=== PATIENT | female | born 1995 | race Caucasian/White ===

== ENCOUNTER 2021-02-01 06:20 | Inpatient (IN) | payer OTHER ==
[2021-02-01 08:53] LABS: BASO % 0.1 % (0-2.0); EOS % 0.1 % (0-4.5); HEMATOCRIT 40.7 % (32.4-45.2); HEMOGLOBIN 14.2 GM/dL (10.7-15.3); LYMPH % 8.6 % (8-40); MCH 30.6 pg (25.7-33.7); MCHC 34.8 g/dl (32.0-36.0); MEAN PLT VOLUME 8.9 fl (7.5-11.1); MONO % 3.8 % (3.8-10.2); NEUT % 87.4 % (42.8-82.8); PLATELET COUNT 217 10^3/uL (134-434); RBC 4.63 M/mm3 (3.60-5.2); RDW 14.1 % (11.6-15.6); WHITE BLOOD COUNT 18.2 K/mm3 (4.0-10.0)
[2021-02-01 09:00] LABS: INR 0.87 (0.83-1.09); PROTHROMBIN TIME (PATIENT) 10.6 SEC (9.7-13.0)
[2021-02-01 09:03] LABS: ACTIVATED PTT 28.1 SECONDS (25.2-36.5)
[2021-02-01] MEDS ORDERED: PCA PUMP NR ONE ×4 (09:10→19:53)
[2021-02-01] MEDS ORDERED: FENTANYL/BUPIVACAINE/NS/PF - PCEA - 50 ML DISP.SYRIN EP ONE ×3 (09:11→18:19)
[2021-02-01 09:14] LABS: CALCIUM 8.5 mg/dL (8.5-10.1)
[2021-02-01 09:15] LABS: BLOOD UREA NITROGEN 9.9 mg/dL (7-18)
[2021-02-01 09:17] LABS: CREATININE 0.6 mg/dL (0.55-1.3)
[2021-02-01 09:34] VITALS: BMI 33.7
[2021-02-01] MEDS ORDERED: BUPIVACAINE HCL/PF 0.25% (2.5MG/ML) 10 ML VIAL ONE ×2 (09:35→18:12)
[2021-02-01] MEDS ORDERED: NALOXONE HCL 0.4 MG/ML VIAL IVPUSH PRN (09:59)
[2021-02-01] MEDS: FENTANYL/BUPIVACAINE/NS/PF - PCEA - 50 ML DISP.SYRIN EP SCH ×3 (10:10→18:10)
[2021-02-01] MEDS: DEXTROSE 5%-LACTATED RINGERS 1,000 ML IV SCH (10:18)
[2021-02-01 11:56] LABS: HIV INTERPRETATION NEGATIVE (NEGATIVE)
[2021-02-01] MEDS ORDERED: ONDANSETRON 4 MG/2 ML VIAL IVPUSH ONE (19:03)
[2021-02-01] MEDS ORDERED: ONDANSETRON 4 MG/2 ML VIAL ONE (19:05)
[2021-02-01] MEDS ORDERED: OXYTOCIN 30 UNITS in 0.9% NS 30 UNIT/500 ML INFUS.BAG IVPB SCH (19:15)
[2021-02-01] MEDS ORDERED: OXYTOCIN 20 UNITS in 0.9% NS 20 UNIT/1,000 ML INFUS.BAG IV ONE (19:23)
[2021-02-01] MEDS ORDERED: LIDOCAINE HCL 1% PRESERVATIVE FREE - 30ML VIAL ONE (21:04)
[2021-02-01] MEDS ORDERED: METHYLERGONOVINE MALEATE 0.2 MG/1 ML AMP IM PRN (23:01)
[2021-02-01] MEDS ORDERED: BISACODYL 10 MG SUPP.RECT RC PRN (23:01)
[2021-02-01] MEDS ORDERED: BENZOCAINE 20% 57 GM BOTTLE TP PRN (23:01)
[2021-02-01] MEDS ORDERED: BENZOCAINE 28 GM HEMORRHOIDAL OINTMENT TP PRN (23:01)
[2021-02-01] MEDS ORDERED: WITCH HAZEL 50% (TUCKS) 40 PAD/JAR PAD TP PRN (23:01)
[2021-02-01] MEDS ORDERED: oxyCODONE HCL 5 MG TABLET PO PRN (23:01)
[2021-02-01] MEDS ORDERED: OXYTOCIN 20 UNITS in 0.9% NS 20 UNIT/1,000 ML INFUS.BAG IV SCH (23:15)
[2021-02-01] MEDS ORDERED: oxyCODONE HCL 5 MG TABLET ONE (23:24)
[2021-02-02] MEDS ORDERED: ZOLPIDEM TARTRATE 5 MG TABLET ONE (01:08)
[2021-02-02] MEDS: ZOLPIDEM TARTRATE 5 MG TABLET PO PRN ×2 (01:15→23:19)
[2021-02-02] MEDS ORDERED: ACETAMINOPHEN 325 MG TABLET (FP) ONE (03:01)
[2021-02-02] MEDS ORDERED: IBUPROFEN 600 MG TABLET (FP) PO ONE ×2 (03:01→11:34)
[2021-02-02] MEDS: ACETAMINOPHEN 325 MG TABLET (FP) PO PRN (03:10)
[2021-02-02] MEDS: IBUPROFEN 600 MG TABLET (FP) PO PRN ×3 (03:10→22:02)
[2021-02-02 09:59] LABS: HEMATOCRIT 36.6 % (32.4-45.2); HEMOGLOBIN 12.7 GM/dL (10.7-15.3); MCH 30.7 pg (25.7-33.7); MCHC 34.6 g/dl (32.0-36.0); MEAN CELL VOLUME 88.9 fl (80-96); MEAN PLT VOLUME 8.1 fl (7.5-11.1); PLATELET COUNT 208 10^3/uL (134-434); RBC 4.12 M/mm3 (3.60-5.2); RDW 14.1 % (11.6-15.6); WHITE BLOOD COUNT 21.4 K/mm3 (4.0-10.0)
[2021-02-02] MEDS: FENTANYL/BUPIVACAINE/NS/PF - PCEA - 50 ML DISP.SYRIN EP SCH (10:28)
[2021-02-02] MEDS: DEXTROSE 5%-LACTATED RINGERS 1,000 ML IV SCH (10:28)
[2021-02-02] MEDS: PRENATAL VITAMINS W/ FOLIC ACID TABLET (FP) PO SCH (11:00)
[2021-02-02] MEDS: PARoxetine HCL 20 MG TABLET PO SCH (11:15)
[2021-02-02] MEDS ORDERED: PRENATAL VITAMINS W/ FOLIC ACID TABLET (FP) PO ONE (11:30)
[2021-02-02 11:41] LABS: ANISOCYTOSIS 1+; MACROCYTOSIS 1+; PLATELET ESTIMATE NORMAL
[2021-02-02 21:52] VITALS: PULSE 81; TEMP 97.4
[2021-02-02] MEDS ORDERED: SENNOSIDES/DOCUSATE COMBO (SENNA PLUS) TABLET (UD) PO PRN (22:00)
[2021-02-03 08:57] VITALS: BP 127/85
[2021-02-03] MEDS: ACETAMINOPHEN 325 MG TABLET (FP) PO PRN (09:21)
[2021-02-03] MEDS: PARoxetine HCL 20 MG TABLET PO SCH (09:22)
[2021-02-03] MEDS: IBUPROFEN 600 MG TABLET (FP) PO PRN (09:22)
[2021-02-03] MEDS: PRENATAL VITAMINS W/ FOLIC ACID TABLET (FP) PO SCH (09:22)
== END 2021-02-03 14:45 | disposition home or self-care (01) | DRG 560 ==
LOC: JDEL 06:20 → JLDR 07:15 → J3W 02-02 12:37
PROVIDERS: ADMIT Obstetrics & Gynecology; ATTEND Obstetrics & Gynecology
PROC: 10E0XZZ Delivery of Products of Conception, External Approach (ICD-10-PCS; principal; 2021-02-01)
PROC: 0W8NXZZ Division of Female Perineum, External Approach (ICD-10-PCS; 2021-02-01)
DX: O69.89X0 Labor and delivery complicated by other cord complications, not applicable or unspecified (principal); Z3A.39 39 weeks gestation of pregnancy; Z37.0 Single live birth
CPT/HCPCS: 36415; 59025; 59409; 80048; 85025; 85461; 85610; 85730; 86780; 86850; 86870; 86900; 86901; 86902; 86999; 87389; C9803; U0003; U0005

== ENCOUNTER 2023-02-02 15:11 | Inpatient (IN) | payer OTHER ==
[2023-02-02 16:12] VITALS: BMI 30.2
[2023-02-02] MEDS ORDERED: NALOXONE HCL 0.4 MG/ML VIAL IM PRN (18:46)
[2023-02-02] MEDS ORDERED: DICYCLOMINE HCL 10 MG CAPSULE PO PRN (18:46)
[2023-02-02] MEDS ORDERED: ONDANSETRON *ODT* 4 MG TABLET SL PRN (18:46)
[2023-02-02] MEDS ORDERED: LOPERAMIDE HCL 2 MG CAPSULE PO PRN (18:46)
[2023-02-02] MEDS ORDERED: MAG HYDROX/AL HYDROX/SIMETH 30 ML UNIT-DOSE CUP PO PRN (18:46)
[2023-02-02] MEDS ORDERED: POLYETHYLENE GLYCOL (HEALTHYLAX) 3350 17 GM PACKET PO PRN (18:46)
[2023-02-02] MEDS ORDERED: BENZOCAINE/MENTHOL (CHLORASEPTIC ) LOZENGE MM PRN (18:46)
[2023-02-02] MEDS ORDERED: IBUPROFEN 400 MG TABLET (FP) PO PRN (18:46)
[2023-02-02] MEDS ORDERED: NALOXONE HCL (KLOXXADO) 8 MG SPRAY NS PRN (18:46)
[2023-02-02] MEDS ORDERED: IBUPROFEN 600 MG TABLET (FP) PO PRN (18:46)
[2023-02-02] MEDS ORDERED: MAGNESIUM HYDROX 2400MG/30ML ORAL SUSPENSION 30 ML CUP PO PRN (18:46)
[2023-02-02] MEDS ORDERED: guaiFENesin 600 MG TABLET.ER (FP) PO PRN (18:46)
[2023-02-02] MEDS ORDERED: BENZONATATE 200 MG CAPSULE PO PRN (18:46)
[2023-02-02] MEDS: LORazepam 1 MG TABLET PO PRN (19:30)
[2023-02-02] MEDS: MELATONIN 5 MG TABLETS PO SCH (22:19)
[2023-02-02] MEDS: THIAMINE HCL 100 MG TABLET (FP) PO SCH (22:19)
[2023-02-02] MEDS: LORazepam 2 MG TABLET PO SCH (22:19)
[2023-02-03] MEDS: LORazepam 2 MG TABLET PO SCH ×4 (05:21→22:19)
[2023-02-03] MEDS: PRENATAL VITAMINS W/ FOLIC ACID TABLET (FP) PO SCH (10:11)
[2023-02-03] MEDS: BISMUTH SUBSALICYLATE 524 MG/30 ML PO PRN (10:28)
[2023-02-03 10:38] LABS: POTASSIUM 4.2 mmol/L (3.5-5.1)
[2023-02-03 10:39] LABS: HEMATOCRIT 35.5 % (32.4-45.2); HEMOGLOBIN 12.1 GM/dL (10.7-15.3); MCH 30.1 pg (25.7-33.7); MCHC 33.9 g/dl (32.0-36.0); MEAN CELL VOLUME 88.6 fl (80-96); MEAN PLT VOLUME 7.3 fl (7.5-11.1); PLATELET COUNT 302 10^3/uL (134-434); RBC 4.01 M/mm3 (3.60-5.2); RDW 13.5 % (11.6-15.6); WHITE BLOOD COUNT 9.8 K/mm3 (4.0-10.0)
[2023-02-03 10:41] LABS: ALBUMIN 3.3 g/dl (3.4-5.0)
[2023-02-03 10:44] LABS: BLOOD UREA NITROGEN 9.2 mg/dL (7-18); CREATININE 0.8 mg/dL (0.55-1.3)
[2023-02-03 10:45] LABS: CALCIUM 8.5 mg/dL (8.5-10.1)
[2023-02-03 10:46] LABS: TOT PROT 5.9 g/dl (6.4-8.2)
[2023-02-03 10:54] LABS: BILIRUBIN,TOTAL 0.2 mg/dL (0.2-1)
[2023-02-03] MEDS: NICOTINE 14 MG/24 HOURS TOPICAL PATCH TD SCH (11:16)
[2023-02-03] MEDS: hydrOXYzine PAMOATE 25 MG CAPSULE (FP) PO PRN ×2 (13:09→22:19)
[2023-02-03] MEDS: LORazepam 1 MG TABLET PO PRN (13:10)
[2023-02-03] MEDS: ACETAMINOPHEN 325 MG TABLET (FP) PO PRN (17:50)
[2023-02-03] MEDS: MELATONIN 5 MG TABLETS PO SCH (22:18)
[2023-02-03] MEDS: THIAMINE HCL 100 MG TABLET (FP) PO SCH (22:19)
[2023-02-03] MEDS: GABAPENTIN 300 MG CAPSULE PO SCH (22:19)
[2023-02-03] MEDS: traZODone HCL 50 MG TABLET (FP) PO SCH (22:19)
[2023-02-03] MEDS: METHOCARBAMOL 500 MG TABLET PO PRN (22:19)
[2023-02-03] MEDS: LITHIUM CARBONATE 300 MG CAPSULE PO SCH (23:04)
[2023-02-04] MEDS: LORazepam 1 MG TABLET PO SCH ×4 (05:23→22:38)
[2023-02-04] MEDS: GABAPENTIN 300 MG CAPSULE PO SCH ×3 (05:24→22:36)
[2023-02-04] MEDS ORDERED: LISDEXAMFETAMINE DIMESYLATE 30 MG PO SCH (10:00)
[2023-02-04] MEDS: PRENATAL VITAMINS W/ FOLIC ACID TABLET (FP) PO SCH (10:03)
[2023-02-04] MEDS: NICOTINE 14 MG/24 HOURS TOPICAL PATCH TD SCH (10:03)
[2023-02-04] MEDS: LITHIUM CARBONATE 300 MG CAPSULE PO SCH ×2 (10:04→22:35)
[2023-02-04] MEDS: LORazepam 1 MG TABLET PO PRN ×2 (13:09→19:39)
[2023-02-04] MEDS: METHOCARBAMOL 500 MG TABLET PO PRN (17:41)
[2023-02-04] MEDS: ACETAMINOPHEN 325 MG TABLET (FP) PO PRN (19:40)
[2023-02-04] MEDS: THIAMINE HCL 100 MG TABLET (FP) PO SCH (22:34)
[2023-02-04] MEDS: MELATONIN 5 MG TABLETS PO SCH (22:34)
[2023-02-04] MEDS: traZODone HCL 50 MG TABLET (FP) PO SCH (22:37)
[2023-02-04] MEDS: BISMUTH SUBSALICYLATE 524 MG/30 ML PO PRN (22:39)
[2023-02-05] MEDS ORDERED: LORazepam 0.5 MG TABLET PO PRN
[2023-02-05] MEDS: LORazepam 0.5 MG TABLET PO SCH ×4 (05:20→22:18)
[2023-02-05] MEDS: GABAPENTIN 300 MG CAPSULE PO SCH ×3 (05:21→22:17)
[2023-02-05] MEDS: NICOTINE 14 MG/24 HOURS TOPICAL PATCH TD SCH (10:05)
[2023-02-05] MEDS: PRENATAL VITAMINS W/ FOLIC ACID TABLET (FP) PO SCH (10:05)
[2023-02-05] MEDS: LITHIUM CARBONATE 300 MG CAPSULE PO SCH ×2 (10:05→22:17)
[2023-02-05] MEDS: hydrOXYzine PAMOATE 25 MG CAPSULE (FP) PO PRN ×2 (10:06→20:16)
[2023-02-05] MEDS: METHOCARBAMOL 500 MG TABLET PO PRN ×2 (11:23→17:37)
[2023-02-05] MEDS: ACETAMINOPHEN 325 MG TABLET (FP) PO PRN (17:14)
[2023-02-05] MEDS: traZODone HCL 50 MG TABLET (FP) PO SCH (22:17)
[2023-02-05] MEDS: THIAMINE HCL 100 MG TABLET (FP) PO SCH (22:17)
[2023-02-05] MEDS: MELATONIN 5 MG TABLETS PO SCH (22:17)
[2023-02-06] MEDS ORDERED: LORazepam 0.5 MG TABLET PO ONE (05:00)
[2023-02-06] MEDS: GABAPENTIN 300 MG CAPSULE PO SCH ×2 (05:23→13:57)
[2023-02-06] MEDS: PRENATAL VITAMINS W/ FOLIC ACID TABLET (FP) PO SCH (10:11)
[2023-02-06] MEDS: NICOTINE 14 MG/24 HOURS TOPICAL PATCH TD SCH (10:11)
[2023-02-06] MEDS: LITHIUM CARBONATE 300 MG CAPSULE PO SCH (10:11)
[2023-02-06 13:22] VITALS: BP 103/62; PULSE 69; RESP 16; TEMP 97.5
== END 2023-02-06 14:07 | disposition other institution (70) | DRG 774 ==
LOC: YASAS 15:11 → Y3N 18:25
PROVIDERS: ADMIT Allergy & Immunology; ATTEND Surgery
PROC: HZ2ZZZZ Detoxification Services for Substance Abuse Treatment (ICD-10-PCS; principal; 2023-02-02)
DX: F10.230 Alcohol dependence with withdrawal, uncomplicated (principal); F13.230 Sedative, hypnotic or anxiolytic dependence with withdrawal, uncomplicated; F14.20 Cocaine dependence, uncomplicated; F17.210 Nicotine dependence, cigarettes, uncomplicated; F31.9 Bipolar disorder, unspecified; F43.10 Post-traumatic stress disorder, unspecified; F90.9 Attention-deficit hyperactivity disorder, unspecified type; G47.00 Insomnia, unspecified
CPT/HCPCS: 36415; 80053; 80178; 81025; 85027; 86780; 87635; 87811; 93005; 93010; Q0162